=== PATIENT | female | born 1950 | race Caucasian/White ===

== ENCOUNTER → 2022-05-13 14:36 | Outpatient (CLI) | payer OTHER, SELFPAY ==
--- NOTE | ~2022-05-13 | US_ITS ---
EXAMINATION: US pelvic complete DATE: 05/13/2022 15:26 INDICATION: Endometrial hyperplasia. Menopause. Comparison:No prior studies for comparison. TECHNIQUE: Multiple transabdominal sonographic images of the pelvis performed. Patient refused transv aginal examination. FINDINGS: The uterus measures 5 x 3.3 x 2 cm. No myometrial masses are identified. The endometrial co mplex measures 4 mm. The ovaries are not visualized. There is no free fluid in the pelvis. There are no abnormal masses seen on either side. IMPRESSION: 1. Mild endometrial prominence measuring 4 mm, slightly above normal limits for postmenopausal female . Reviewed, dictated and finalized at location A. IMPRESSION: 1. Mild endometrial prominence measuring 4 mm, slightly above normal limits for postmenopausal female.
== END ==
PROVIDERS: PCP Internal Medicine; Visit Provider Nurse Practitioner Family
DX: N85.00 Endometrial hyperplasia, unspecified (principal); N95.1 Menopausal and female climacteric states
CPT/HCPCS: 76856

== ENCOUNTER 2023-01-15 14:32 | Emergency (ER) | payer OTHER, SELFPAY ==
[2023-01-15 14:45] VITALS: BP 152/68; PULSE 60; RESP 18; TEMP 37; O2SAT 98
--- NOTE | 2023-01-15 15:25 | ED.EYEPROB ---
HPI - Eye Problem General Chief complaint: Eye Problems Stated complaint: Eye Pain Time Seen by Provider: 01/15/23 15:10 Source: patient Mode of arrival: ambulatory Limitations: no limitations History of Present Illness HPI Narrative: 72 year old female presents to [facility] care with complaints of 2 week duration of initially watering and itchy eyes that she states she thought was allergies. Patient reports that eyes then became scratchy dry with red eyes. Patient reports also that she has noted some greenish drainage in the corners of her eyes.Patient reports that vision in her left eye is a little blurry but not really decreased, no sharp pain to eyes. 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 MD chief complaint: eye redness and other (eye drainage) Onset (ago): week(s) (2 ) Onset description: other (initially eyes were watery and itchy then red scratchy with some greenish drainage) Eye Symptoms: burning, redness, pain, itching and discharge Severity scale (1-10): 8 Treatments Prior to Arrival: other (eye lubricant) Related Data Home Medications Medication Instructions Recorded Confirmed atorvastatin 20 mg tablet 20 mg PO DAILY 01/15/23 01/15/23 diclofenac sodium 1 % topical gel See Rx Instructions .Route .COMPLEX 01/15/23 01/15/23 hydrocodone 10 mg-acetaminophen See Rx Instructions .Route 01/15/23 01/15/23 325 mg tablet .COMPLEX PRN ass losartan 100 1 tablet PO DAILY 01/15/23 01/15/23 mg-hydrochlorothiazide 12.5 mg tablet ropinirole 0.25 mg tablet 0.25 mg PO DAILY 01/15/23 01/15/23 sertraline 50 mg tablet 50 mg PO DAILY 01/15/23 01/15/23 Allergies Allergy/AdvReac Type Severity Reaction Status Date / Time zolpidem Allergy Unknown Unknown Verified 01/15/23 15:10 Review of Systems Review of Systems: CONSTITUTIONAL: Denies fever, chills, or sweats. EYES: Denies visual changes. Reports redness,, irritation, discharge, no swelling to eyes reports burning sensation to eyes ENT: Denies rhinorrhea, congestion, sore throat, or otalgia. CARDIOVASCULAR: Denies chest pain, palpitations, or edema. RESPIRATORY: Denies cough or dyspnea. SKIN: Denies rash or itching. 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 Surgical History Surgical History (Updated 01/18/23 @ 08:32 by Maida Murguia NP) History of cataract surgery History of dilatation and curettage History of tonsillectomy and adenoidectomy Family History Family History (Updated 10/12/15 @ 13:58 by DOCTOR UNKNOWN) Father Family history of diabetes mellitus in first degree relative Diabetes mellitus Patient's father is in good health Mother Family history of cardiovascular disease Sibling Family history of cardiovascular disease Social History Social History (Updated 01/18/23 @ 08:21 by Maida Murguia NP) Smoking status: Current every day smoker Tobacco type: e-cigarettes/vaping Alcohol intake: never Comments At time of signature, agree with nursing past medical, surgical, social and family history. There is no relevant family history pertinent to the presenting complaint Exam Narrative: GENERAL: Well-appearing, well-nourished, and in no acute distress. HEAD: Normocephalic, atraumatic. EYES: PERRLA and EOMI. Upper and lower eyelids unremarkable. No periorbital cellulitis noted. Sclera and conjunctivae injected some greenish drainage corners of eyes ENT: Nares clear, no rhinorrhea or epistaxis. Mucous membranes moist. NECK: Supple. no lymphadenopathy CHEST: Clear to auscultation. No respiratory distress. SAO2 98% on room air HEART: Regular rate and rhythm. No murmur heard. Normal peripheral pulses. SKIN: Warm, dry, no rash.
== END 2023-01-15 15:40 | disposition home or self-care (01) ==
PROVIDERS: Emergency Provider Registered Nurse; PCP Internal Medicine
DX: H10.9 Unspecified conjunctivitis (principal); F17.290 Nicotine dependence, other tobacco product, uncomplicated; I10 Essential (primary) hypertension; E78.5 Hyperlipidemia, unspecified
CPT/HCPCS: 99213; G0463